=== PATIENT | female | born 1990 | race Caucasian/White ===

== ENCOUNTER 2024-03-20 21:58 | Emergency (ER) | payer OTHER ==
[~2024-03-20] VITALS: Ht 157.5 cm; Wt 64.7 kg
[2024-03-20] MEDS ORDERED: BUPR75TA5 PO (22:05)
[2024-03-20] MEDS ORDERED: ACET32TAB PO (22:05)
[2024-03-20] MEDS ORDERED: PREN1TAB11 PO (22:05)
[2024-03-20 22:35] LABS: BASO % 0.4 % (0.0-1.0); EOS # 0.1 10^3/uL (0.0-0.5); EOS % 1.8 % (0.0-3.0); HEMATOCRIT 35.8 % (36.0-47.0); HEMOGLOBIN 12.2 g/dl (12.0-15.5); LYMPH # 2.3 10^3/uL (1.5-5.0); LYMPH % 31.9 % (24.0-44.0); MEAN CORPUSCULAR HEMOGLOBIN 31.1 pg (27.0-33.0); MEAN CORPUSCULAR HGB CONC 34.1 g/dl (32.0-36.5); MEAN CORPUSCULAR VOLUME 91.3 fl (80.0-96.0); MONO # 0.8 10^3/uL (0.0-0.8); MONO % 10.7 % (2.0-8.0); NEUTROPHILS % 55.1 % (36.0-66.0); PLATELET COUNT, AUTOMATED 267 10^3/uL (150-450); RED BLOOD COUNT 3.92 10^6/uL (4.00-5.40); WHITE BLOOD COUNT 7.3 10^3/uL (4.0-10.0)
[2024-03-20 23:02] LABS: BLOOD UREA NITROGEN 9 MG/DL (9-23); CALCIUM LEVEL 8.8 MG/DL (8.5-10.1); CARBON DIOXIDE LEVEL 26 MMOL/L (20-31); CHLORIDE LEVEL 107 MMOL/L (98-107); CREATININE FOR GFR 0.74 MG/DL (0.55-1.30); GLOMERULAR FILTRATION RATE > 60.0 (>60); GLUCOSE, FASTING 96 MG/DL (60-100); POTASSIUM SERUM 3.4 MMOL/L (3.5-5.1); SODIUM LEVEL 138 MMOL/L (136-145)
[2024-03-20 23:17] LABS: HCG, SERUM QUANTITATIVE 10546.2 MIU/ML (<4.2)
[2024-03-21] MEDS: NS 1,000 ML IV ONE (00:17)
[2024-03-21] MEDS: KETOROLAC 30 MG/ML 1ML VIAL IV ONE (00:18)
[2024-03-21 01:47] VITALS: BP 116/68; TEMP 98; O2SAT 99
== END 2024-03-21 01:49 | disposition home or self-care (01) ==
LOC: M ED 21:58
DX: O99.351 Diseases of the nervous system complicating pregnancy, first trimester (principal); G43.909 Migraine, unspecified, not intractable, without status migrainosus; O34.81 Maternal care for other abnormalities of pelvic organs, first trimester; N83.12 Corpus luteum cyst of left ovary; Z3A.01 Less than 8 weeks gestation of pregnancy; Z79.1 Long term (current) use of non-steroidal anti-inflammatories (NSAID); Z79.899 Other long term (current) drug therapy
CPT/HCPCS: 76801; 76817; 80048; 84702; 85025; 86850; 86900; 86901; 93976; 96361; 96374; 99284; J1885

== ENCOUNTER 2024-10-18 02:27 | Outpatient (CLI) | payer OTHER ==
[~2024-10-18 02:27] MED LIST: ACET32TAB PO; BUPR75TA5 PO; PREN1TAB11 PO
== END 2024-10-18 07:00 | disposition home or self-care (01) ==
LOC: M LDO 02:27
PROVIDERS: ATTEND Obstetrics & Gynecology
DX: O47.03 False labor before 37 completed weeks of gestation, third trimester (principal); Z3A.35 35 weeks gestation of pregnancy
CPT/HCPCS: 59025; G0463

== ENCOUNTER 2024-10-30 11:01 | Outpatient (CLI) | payer OTHER ==
[~2024-10-30] VITALS: Ht 160 cm; Wt 85.5 kg
[2024-10-30 13:07] LABS: HEMATOCRIT 31.8 % (36.0-47.0); HEMOGLOBIN 10.1 g/dl (12.0-15.5); MEAN CORPUSCULAR HEMOGLOBIN 26.3 pg (27.0-33.0); MEAN CORPUSCULAR HGB CONC 31.8 g/dl (32.0-36.5); MEAN CORPUSCULAR VOLUME 82.8 fl (80.0-96.0); PLATELET COUNT, AUTOMATED 246 10^3/uL (150-450); RED BLOOD COUNT 3.84 10^6/uL (4.00-5.40); WHITE BLOOD COUNT 6.7 10^3/uL (4.0-10.0)
[2024-10-30 13:15] LABS: APPEARANCE, URINE HAZY (CLEAR); BACTERIA, URINE AUTO NEGATIVE (NEGATIVE); BILIRUBIN, URINE AUTO NEGATIVE (NEGATIVE); BLOOD, URINE BLOOD NEGATIVE (NEGATIVE); COLOR, URINE YELLOW (YELLOW); GLUCOSE, URINE (UA) AUTO NEGATIVE (NEGATIVE); KETONE, URINE AUTO NEGATIVE (NEGATIVE); LEUKOCYTE ESTERASE, URINE AUTO NEGATIVE (NEGATIVE); MUCUS, URINE SMALL (NEGATIVE); NITRITE, URINE AUTO NEGATIVE (NEGATIVE); PROTEIN, URINE AUTO 1+ mg/dL (NEGATIVE); RBC, URINE AUTO 1 /HPF (0-3); SPECIFIC GRAVITY URINE AUTO 1.024 (1.002-1.035); SQUAMOUS EPITHELIAL CELL UR AU 4 /HPF (0-6); WBC, URINE AUTO 1 /HPF (0-3)
[2024-10-30] MEDS: ONDANSETRON 4MG 2ML VIAL IV ONE (13:16)
[2024-10-30 13:26] LABS: TOTAL PROTEIN,RANDOM URINE 21.8 MG/DL (0.0-14.0)
[2024-10-30 13:29] LABS: URIC ACID 5.4 MG/DL (3.1-7.8)
[2024-10-30 13:31] LABS: CREATININE,RANDOM URINE 211.2 MG/DL; LDH LACTATE DEHYDROGENASE 191 U/L (120-246)
[2024-10-30 13:32] LABS: ALBUMIN 2.7 G/DL (3.2-5.2); ALKALINE PHOSPHATASE 151 U/L (35-104); ALT/SGPT 12 U/L (7.0-40); AST/SGOT 19 U/L (<34); BILIRUBIN,TOTAL 0.4 MG/DL (0.3-1.2); BLOOD UREA NITROGEN 9 MG/DL (9-23); CALCIUM LEVEL 8.2 MG/DL (8.5-10.1); CARBON DIOXIDE LEVEL 21 MMOL/L (20-31); CHLORIDE LEVEL 108 MMOL/L (98-107); CREATININE FOR GFR 0.61 MG/DL (0.55-1.30); GLOMERULAR FILTRATION RATE > 60.0 (>60); GLUCOSE, FASTING 84 MG/DL (60-100); SODIUM LEVEL 140 MMOL/L (136-145); TOTAL PROTEIN 6.1 G/DL (5.7-8.2)
[2024-10-30] MEDS: MULTIVITAMIN -ADULT INJECTION 10 ML in NS (Normal Saline) 0.9% 1,000 ML IV ONE (14:32)
[2024-10-30] MEDS ORDERED: VALT1TAB PO (17:08)
[2024-10-30] MEDS ORDERED: HOME MED LIST COMPLETE! XX SCH (17:10)
== END 2024-10-30 15:30 | disposition home or self-care (01) ==
LOC: M LDO 11:01
PROVIDERS: ATTEND Advanced Practice Midwife
DX: O21.2 Late vomiting of pregnancy (principal); O26.893 Other specified pregnancy related conditions, third trimester; O99.343 Other mental disorders complicating pregnancy, third trimester; O99.353 Diseases of the nervous system complicating pregnancy, third trimester; R05.9 Cough, unspecified; F41.9 Anxiety disorder, unspecified; G43.909 Migraine, unspecified, not intractable, without status migrainosus; Z3A.37 37 weeks gestation of pregnancy
CPT/HCPCS: 59025; 80053; 81001; 82247; 82570; 83615; 84156; 84450; 84460; 84550; 85027; 87486; 87581; 87633; 87798; 96365; 96366; 96374; G0463; J2405

== ENCOUNTER → 2024-11-05 | Outpatient (CLI) | payer OTHER ==
[~2024-11-05] MED LIST changes: +ACET-683 PO; +BUPR150T12 PO; +IBUP80TA PO; +VALT1TAB PO
[2024-11-05 17:49] LABS: HEMATOCRIT 36.8 % (36.0-47.0); HEMOGLOBIN 11.5 g/dl (12.0-15.5); MEAN CORPUSCULAR HGB CONC 31.3 g/dl (32.0-36.5); MEAN CORPUSCULAR VOLUME 83.3 fl (80.0-96.0); PLATELET COUNT, AUTOMATED 281 10^3/uL (150-450); RED BLOOD COUNT 4.42 10^6/uL (4.00-5.40); WHITE BLOOD COUNT 8.6 10^3/uL (4.0-10.0)
[2024-11-05 18:00] LABS: URIC ACID 6.7 MG/DL (3.1-7.8)
[2024-11-05 18:02] LABS: LDH LACTATE DEHYDROGENASE 197 U/L (120-246)
[2024-11-05 18:03] LABS: ALT/SGPT 16 U/L (7.0-40); AST/SGOT 18 U/L (<34); BILIRUBIN,TOTAL 0.4 MG/DL (0.3-1.2); CREATININE FOR GFR 0.81 MG/DL (0.55-1.30); GLOMERULAR FILTRATION RATE > 60.0 (>60)
== END ==
LOC: M PLALAB 16:18
PROVIDERS: ATTEND Nurse Practitioner Family
DX: O13.3 Gestational [pregnancy-induced] hypertension without significant proteinuria, third trimester (principal)

== ENCOUNTER 2024-11-08 11:44 | Inpatient (IN) | payer OTHER ==
[2024-11-08] VITALS (19 sets, daily range): BP systolic 123–175; BP diastolic 63–105
[~2024-11-08] VITALS: Ht 160 cm; Wt 88.0 kg
[~2024-11-08 11:44] MED LIST changes: -ACET-683 PO; -BUPR150T12 PO; -IBUP80TA PO
[2024-11-08] MEDS ORDERED: BUPR150T12 PO (12:06)
[2024-11-08 13:32] LABS: HEMATOCRIT 32.1 % (36.0-47.0); HEMOGLOBIN 10.2 g/dl (12.0-15.5); MEAN CORPUSCULAR HEMOGLOBIN 26.3 pg (27.0-33.0); MEAN CORPUSCULAR HGB CONC 31.8 g/dl (32.0-36.5); MEAN CORPUSCULAR VOLUME 82.7 fl (80.0-96.0); PLATELET COUNT, AUTOMATED 233 10^3/uL (150-450); RED BLOOD COUNT 3.88 10^6/uL (4.00-5.40); WHITE BLOOD COUNT 8.8 10^3/uL (4.0-10.0)
[2024-11-08] MEDS: miSOPROStol 50MCG 1/2 TABLET PO SCH (13:59)
[2024-11-08] MEDS ORDERED: miSOPROStol 50MCG 1/2 TABLET SL SCH (14:05)
[2024-11-08 14:23] LABS: HIV 1&2 SCREEN NEGATIVE (NEGATIVE)
[2024-11-08] MEDS: PROMETHAZINE 25MG/ML 1ML VIAL IV ONE (16:07)
[2024-11-08] MEDS: BUTORPHANOL 2 MG/ML 1ML VIAL IV ONE (16:08)
[2024-11-08] MEDS ORDERED: EPIDURAL/PCA KEYS XX PRN (18:00)
[2024-11-08] MEDS ORDERED: ePHEDrine SULFATE 25 MG/5 ML(5MG/ML) SYRINGE IVP PRN (18:00)
[2024-11-08] MEDS ORDERED: diphenhydrAMINE 50MG/ML VIAL IV PRN (18:00)
[2024-11-08] MEDS ORDERED: ONDANSETRON 4MG 2ML VIAL IV PRN (18:00)
[2024-11-08] MEDS ORDERED: NALOXONE INJ 0.4MG/1ML VIAL IV PRN (18:00)
[2024-11-08] MEDS: LR 500 ML IV PRN (18:28)
[2024-11-08] MEDS: FENTANYL/ROPIVACAINE/NACL BAG 100 ML EPIDURAL SCH (18:28)
[2024-11-08] MEDS: LR 1,000 ML IV ONE (18:29)
[2024-11-08 20:13] LABS: HEPATITIS C VIRUS ABY INDEX < 0.02 INDEX (<0.8)
[2024-11-08] MEDS: ACETAMINOPHEN 500 MG TAB PO ONE (23:37)
[2024-11-09] MEDS: AMPICILLIN SOD 2 GM in DEXTROSE 5% (D5W) MINI-BAG PLU 100 ML IV ONE (00:33)
[2024-11-09] MEDS: GENTAMICIN 120 MG in D5W 50 ML IV ONE (00:49)
[2024-11-09 01:04] LABS: CORD GAS ABE V -7.7; CORD GAS HCO3 V 17.7 MMOL/L; CORD GAS O2 SAT V 61.5 %; CORD GAS PCO2 V 35.8 mmHg; CORD GAS PH V 7.311 UNITS; CORD GAS PO2 V 25.6 mmHg; CORD GAS SBC V 17.5 MMOL/L; CORD GAS TCO2 V 18.8 MMOL/L
[2024-11-09 01:06] LABS: CORD GAS HCO3 A 15.8 MMOL/L; CORD GAS O2 SAT A 74.1 %; CORD GAS PCO2 A 42.4 mmHg; CORD GAS PH A 7.189 UNITS; CORD GAS PO2 A 37.1 mmHg; CORD GAS SBC A 14.8 MMOL/L; CORD GAS TCO2 A 17.1 MMOL/L
[2024-11-09] MEDS: OXYTOCIN DRIP 30 UNITS in IV 1 EA IV PRN (01:06)
[2024-11-09] MEDS: LIDOCAINE 1% MDV 20ML VIAL INFIL PRN (01:07)
[2024-11-09] MEDS ORDERED: RHOGAM 300MCG (1500IU) INJ IM SCH (01:25)
[2024-11-09] MEDS ORDERED: ONDANSETRON 4MG 2ML VIAL IV PRN (01:25)
[2024-11-09] MEDS ORDERED: METHYLERGONOVINE MALEATE 0.2 MG TAB PO PRN (01:25)
[2024-11-09] MEDS ORDERED: ACETAMINOPHEN 325 MG TAB PO PRN (01:25)
[2024-11-09] MEDS: IBUPROFEN 800 MG TAB PO PRN (01:40)
[2024-11-09 02:15] VITALS: BP 144/72
[2024-11-09 03:36] VITALS: BP 123/68; O2SAT 96
[2024-11-09 06:22] VITALS: BP 116/66; O2SAT 99
[2024-11-09] MEDS: buPROPion **XL** TABLET 150MG (WELLBUTRIN XL) PO SCH (09:47)
[2024-11-09] MEDS: PRENATAL VITAMINS CHEWABLE TABLET PO SCH (09:47)
[2024-11-09] MEDS: valACYclovir HCL 500 MG TAB PO SCH (09:47)
[2024-11-09] MEDS: DIBUCAINE 1% OINTMENT 30GM TOP PRN (09:47)
[2024-11-09 18:00] VITALS: BP 127/58; O2SAT 98
[2024-11-10 02:00] VITALS: BP 129/70; O2SAT 98
[2024-11-10 06:00] VITALS: BP 138/76; O2SAT 95
[2024-11-10] MEDS: ACETAMINOPHEN 500 MG TAB PO PRN (09:10)
[2024-11-10 09:42] VITALS: BP 112/73; O2SAT 98
[2024-11-10 14:00] VITALS: BP 114/78; O2SAT 99
[2024-11-10 18:00] VITALS: BP 130/75; O2SAT 96
[2024-11-11 06:00] VITALS: BP 148/81; O2SAT 98
[2024-11-11] MEDS ORDERED: MEASLES,MUMPS,RUBELLA VACCINE INJ (MMR-II) SC.IMMUN ONE (09:00)
[2024-11-11] MEDS: DOCUSATE SODIUM 100MG CAPSULE PO PRN (09:40)
[2024-11-11] MEDS: IBUPROFEN 600MG TAB PO PRN (09:41)
[2024-11-11] MEDS ORDERED: ACET-683 PO (09:53)
[2024-11-11] MEDS ORDERED: IBUP80TA PO (09:53)
[2024-11-11 10:13] LABS: HEMATOCRIT 30.7 % (36.0-47.0); HEMOGLOBIN 9.8 g/dl (12.0-15.5); MEAN CORPUSCULAR HEMOGLOBIN 26.5 pg (27.0-33.0); MEAN CORPUSCULAR HGB CONC 31.9 g/dl (32.0-36.5); PLATELET COUNT, AUTOMATED 257 10^3/uL (150-450); WHITE BLOOD COUNT 12.7 10^3/uL (4.0-10.0)
[2024-11-11 10:32] LABS: URIC ACID 6.2 MG/DL (3.1-7.8)
[2024-11-11 10:34] LABS: LDH LACTATE DEHYDROGENASE 261 U/L (120-246)
[2024-11-11 10:35] LABS: ALT/SGPT 22 U/L (7.0-40); AST/SGOT 38 U/L (<34); BILIRUBIN,TOTAL 0.2 MG/DL (0.3-1.2); CREATININE FOR GFR 0.74 MG/DL (0.55-1.30); GLOMERULAR FILTRATION RATE > 60.0 (>60)
[2024-11-11] MEDS: ANUSOL HC CREAM 30GM TOP PRN (16:13)
== END 2024-11-11 16:20 | disposition home or self-care (01) | DRG 807 ==
LOC: M LDI 11:44 → M OBS 11-09 03:33
PROVIDERS: ADMIT Specialist; ATTEND Specialist
PROC: 3E0DXGC Introduction of Other Therapeutic Substance into Mouth and Pharynx, External Approach (ICD-10-PCS; 2024-11-08)
PROC: 10E0XZZ Delivery of Products of Conception, External Approach (ICD-10-PCS; principal; 2024-11-09)
PROC: 0KQM0ZZ Repair Perineum Muscle, Open Approach (ICD-10-PCS; 2024-11-09)
PROC: 10907ZC Drainage of Amniotic Fluid, Therapeutic from Products of Conception, Via Natural or Artificial Opening (ICD-10-PCS; 2024-11-09)
DX: O13.4 Gestational [pregnancy-induced] hypertension without significant proteinuria, complicating childbirth (principal); Z37.0 Single live birth; Z3A.38 38 weeks gestation of pregnancy; O76 Abnormality in fetal heart rate and rhythm complicating labor and delivery; O41.1290 Chorioamnionitis, unspecified trimester, not applicable or unspecified; O70.1 Second degree perineal laceration during delivery